=== PATIENT | female | born 1965 | race African-American/Black ===

== ENCOUNTER 2022-10-28 04:10 | Day surgery (SDC) | payer OTHER ==
[2022-10-22 15:16] VITALS: BMI 31.1
[2022-10-28] MEDS ORDERED: MIDAZOLAM HCL 2 MG/2 ML SINGLE DOSE VIAL ONE (09:09)
[2022-10-28] MEDS ORDERED: IBUPROFEN 600 MG TABLET (FP) PO PRN (10:37)
[2022-10-28] MEDS ORDERED: IBUPROFEN 800 MG/8 ML IJ IVPB PRN (10:37)
[2022-10-28] MEDS ORDERED: ONDANSETRON 4 MG/2 ML VIAL IVPUSH PRN (10:37)
[2022-10-28] MEDS ORDERED: oxyCODONE HCL 5 MG TABLET PO PRN (10:37)
[2022-10-28] MEDS ORDERED: ACETAMINOPHEN 325 MG TABLET (FP) PO PRN (10:44)
[2022-10-28] MEDS ORDERED: ELECTROLYTE-148 SOLN 1,000 ML IV SCH (10:45)
[2022-10-28] MEDS ORDERED: ALBUTEROL SO4 0.083% IH SOL 2.5 MG/3 ML VIAL.NEB. NEB ONE (10:45)
[2022-10-28] MEDS ORDERED: LACTATED RINGERS SOLUTION 1,000 ML IV SCH (10:45)
[2022-10-28 12:22] VITALS: RESP 18; TEMP 98
[2022-10-28 12:55] VITALS: BP 115/62; PULSE 84
== END 2022-10-28 13:00 | disposition home or self-care (01) ==
LOC: JASU-SURG 04:10
PROVIDERS: ATTEND Obstetrics & Gynecology
PROC: 0UB98ZZ Excision of Uterus, Via Natural or Artificial Opening Endoscopic (ICD-10-PCS; principal; 2022-10-28 09:00)
DX: N95.0 Postmenopausal bleeding (principal); D25.9 Leiomyoma of uterus, unspecified; N84.0 Polyp of corpus uteri
CPT/HCPCS: 81025; 88305-TC; 94760

== ENCOUNTER 2023-07-28 03:51 | Day surgery (SDC) | payer OTHER ==
[2023-07-22 12:07] VITALS: BMI 31.5
[2023-07-28] MEDS ORDERED: MIDAZOLAM HCL 2 MG/2 ML SINGLE DOSE VIAL ONE (09:11)
[2023-07-28] MEDS ORDERED: PROPOFOL 20 ML ONE (09:41)
[2023-07-28] MEDS ORDERED: PROMETHAZINE HCL 25 MG/1 ML VIAL IVPB PRN (09:56)
[2023-07-28] MEDS ORDERED: ONDANSETRON 4 MG/2 ML VIAL IVPUSH PRN ×2 (09:56→10:05)
[2023-07-28] MEDS ORDERED: oxyCODONE HCL 5 MG TABLET PO PRN ×2 (09:56→10:05)
[2023-07-28] MEDS ORDERED: LACTATED RINGERS SOLUTION 1,000 ML IV SCH (10:00)
[2023-07-28] MEDS ORDERED: IBUPROFEN 800 MG/8 ML IJ IVPB PRN (10:05)
[2023-07-28] MEDS ORDERED: IBUPROFEN 600 MG TABLET (FP) PO PRN (10:05)
[2023-07-28] MEDS ORDERED: IBUPROFEN 800 MG/8 ML IJ IVPB ONE (10:07)
[2023-07-28] MEDS: IBUPROFEN 800 MG/8 ML IJ IVPB ONE (10:11)
[2023-07-28] MEDS ORDERED: ELECTROLYTE-148 SOLN 1,000 ML IV SCH (10:15)
[2023-07-28 11:37] VITALS: RESP 16
[2023-07-28 12:32] VITALS: BP 110/62; PULSE 70; TEMP 97
== END 2023-07-28 12:25 | disposition home or self-care (01) ==
LOC: JASU-SURG 03:51
PROVIDERS: ATTEND Obstetrics & Gynecology
PROC: 0UB98ZZ Excision of Uterus, Via Natural or Artificial Opening Endoscopic (ICD-10-PCS; principal; 2023-07-28 09:00)
DX: D25.0 Submucous leiomyoma of uterus (principal); N84.0 Polyp of corpus uteri
CPT/HCPCS: 88305-TC; 94760